=== PATIENT | female | born 1965 | race Caucasian/White ===

== ENCOUNTER 2022-04-27 11:04 | Emergency (ER) | payer SELFPAY ==
[2022-04-27 11:28] VITALS: BP 136/73; PULSE 82; RESP 18; TEMP 98.4; BMI 25.0
[2022-04-27] MEDS ORDERED: DEXAMETHASONE LIQUID 0.5 MG/5 ML PO ONE (12:35)
[2022-04-27] MEDS ORDERED: ALBUTEROL SO4 2.5/IPRATROPIUM 0.5 INH SOL 3 ML VIAL.NEB. NEB ONE (13:52)
[2022-04-27] MEDS ORDERED: DEXAMETHASONE SOD PHOSPHATE 10 MG/1 ML VIAL ONE ×2 (13:52→13:54)
[2022-04-27] MEDS: ALBUTEROL SO4 2.5/IPRATROPIUM 0.5 INH SOL 3 ML VIAL.NEB. NEB SCH ×2 (14:01→14:02)
== END 2022-04-27 15:12 | disposition home or self-care (01) ==
LOC: JER 11:04
PROC: 3E0F7GC Introduction of Other Therapeutic Substance into Respiratory Tract, Via Natural or Artificial Opening (ICD-10-PCS; principal; 2022-04-27)
DX: J45.21 Mild intermittent asthma with (acute) exacerbation (principal)
CPT/HCPCS: 0241U-QW; 71046-TC-FY; 99284-25